=== PATIENT | female | born 1940 | race Two or more races ===

== ENCOUNTER → 2020-08-02 | Day surgery (SDC) | payer OTHER ==
[~2020-08-02] MED LIST: ALTACE5 MG PO; ATORVASTATIN CA10 MG PO; ECOTRIN81 MG PO; KAPSPARGO SPRIN25 MG PO; PEPCID AC20 MG PO; PLAVIX75 MG PO
== END | disposition home or self-care (01) ==
LOC: ADM 07-26 11:15 → CIR.AMB 10:33
PROVIDERS: ATTEND Colon & Rectal Surgery
DX: K64.5 Perianal venous thrombosis (principal); Z20.828 Contact with and (suspected) exposure to other viral communicable diseases